=== PATIENT | male | born 1980 | race Caucasian/White ===

== ENCOUNTER 2017-11-18 15:52 | Emergency (ER) | payer BC ==
[~2017-11-18] VITALS: Ht 172.7 cm; Wt 113.4 kg
[2017-11-18 15:57] VITALS: Ht 172.7 cm; Wt 113.4 kg
[2017-11-18 17:12] VITALS: BP 152/105
== END 2017-11-18 17:12 | disposition home or self-care (01) ==
LOC: ED 15:52
DX: M54.5 Low back pain (principal)
CPT/HCPCS: J1170; Q0162

== ENCOUNTER 2017-11-20 07:56 | Emergency (ER) | payer BC ==
[~2017-11-20] VITALS: Ht 172.7 cm; Wt 113.4 kg
[2017-11-20 08:09] VITALS: Ht 172.7 cm; Wt 113.4 kg
[2017-11-20 09:58] LABS: AMPHETAMINE QUAL UR NONE DETECTED (See below)
[2017-11-20 11:45] VITALS: BP 143/92
== END 2017-11-20 11:45 | disposition home or self-care (01) ==
LOC: ED 07:56
PROVIDERS: Emergency Medicine
DX: G89.29 Other chronic pain (principal); M54.5 Low back pain
CPT/HCPCS: J3010

== ENCOUNTER 2018-08-16 20:20 | Emergency (ER) | payer BC ==
[~2018-08-16] VITALS: Ht 175.3 cm; Wt 117.9 kg
[2018-08-16 20:28] VITALS: Ht 175.3 cm; Wt 117.9 kg
[2018-08-16 21:26] LABS: BASOPHIL % 0.7 % (0-2); PLATELET COUNT 313 x10^3mcL (130-400); RED CELL DISTRIBUTION WIDTH 13.7 % (11.5-14.5)
[2018-08-16 21:33] LABS: CALCIUM 9.5 mg/dL (8.5-10.1); CARBON DIOXIDE 25.2 mmol/L (21-32); CHLORIDE SERUM 102 mmol/L (98-107); CREATININE SERUM 0.8 mg/dL (0.7-1.3); GFR1 > 60 mL/min; GLUCOSE SERUM 97 mg/dL (74-106); POTASSIUM SERUM 3.9 mmol/L (3.5-5.1); SODIUM SERUM 141 mmol/L (136-145)
[2018-08-16 21:46] LABS: ALBUMIN 4.2 g/dL (3.4-5.0); ALKALINE PHOSPHATASE 61 U/L (46-116); ALT/SGPT 43 U/L (16-63); AST/SGOT 36 U/L (15-37); BILIRUBIN TOTAL 0.3 mg/dL (0.20-1.00)
[2018-08-16 22:51] LABS: UA SPECIFIC GRAVITY 1.015 (1.005-1.035); microscopic required? YES; urine erythrocyte TRACE (NEGATIVE)
[2018-08-16 22:58] LABS: AMPHETAMINE QUAL UR NONE DETECTED (See below)
[2018-08-17 00:37] VITALS: BP 140/76
[2018-08-17 00:58] LABS: MAGNESIUM 2.1 mg/dL (1.8-2.4); PHOSPHOROUS 2.7 mg/dL (2.5-4.9)
== END 2018-08-17 00:37 | disposition left against medical advice (07) ==
LOC: ED 20:20 → DU 23:15
PROVIDERS: Emergency Medicine; Family Medicine
DX: R55 Syncope and collapse (principal); R42 Dizziness and giddiness; R11.0 Nausea; R51 Headache; H53.8 Other visual disturbances; Z98.890 Other specified postprocedural states
CPT/HCPCS: 83880; G0480; J1885; J2270; J2765; J7030; J8597; Q0092

== ENCOUNTER 2019-02-18 06:12 | Emergency (ER) | payer BC ==
[~2019-02-18] VITALS: Ht 172.7 cm; Wt 125.6 kg
[2019-02-18 06:17] VITALS: Ht 172.7 cm; Wt 125.6 kg
[2019-02-18 07:03] LABS: BASOPHIL % 0.6 % (0-2); PLATELET COUNT 317 x10^3mcL (130-400)
[2019-02-18 07:16] LABS: CALCIUM 8.5 mg/dL (8.5-10.1); CARBON DIOXIDE 26.9 mmol/L (21-32); CHLORIDE SERUM 102 mmol/L (98-107); CREATININE SERUM 0.8 mg/dL (0.7-1.3); GFR1 > 60 mL/min; GLUCOSE SERUM 102 mg/dL (74-106); POTASSIUM SERUM 3.7 mmol/L (3.5-5.1); SODIUM SERUM 138 mmol/L (136-145)
[2019-02-18 07:20] LABS: ALBUMIN 3.8 g/dL (3.4-5.0); ALKALINE PHOSPHATASE 71 U/L (46-116); ALT/SGPT 78 U/L (16-63); AST/SGOT 41 U/L (15-37); BILIRUBIN TOTAL 0.27 mg/dL (0.20-1.00); TOTAL PROTEIN, SERUM 7.5 g/dL (6.4-8.2)
[2019-02-18 07:28] LABS: T3 TOTAL 1.38 ng/mL
[2019-02-18 07:35] LABS: FREE T4 0.95 ng/dL (0.76-1.46); FREE THYROXINE INDEX 3.1 ug/dL (1.4-4.5); T4(THYROXINE) 8.8 ug/dL (4.7-13.3)
[2019-02-18 07:36] LABS: CHOLESTEROL/HDL RATIO 4.7
[2019-02-18 08:27] LABS: AMPHETAMINE QUAL UR NONE DETECTED (See below)
[2019-02-18 09:21] VITALS: BP 132/86
== END 2019-02-18 09:21 | disposition home or self-care (01) ==
LOC: ED 06:12
PROVIDERS: Emergency Medicine
DX: R00.2 Palpitations (principal); R51 Headache; T40.4X5A Adverse effect of other synthetic narcotics, initial encounter; F17.200 Nicotine dependence, unspecified, uncomplicated; Z71.6 Tobacco abuse counseling; Y92.89 Other specified places as the place of occurrence of the external cause
CPT/HCPCS: 84439; 99406; J2060; J7030; Q0092